=== PATIENT | male | born 1975 | race Caucasian/White ===

== ENCOUNTER 2019-01-04 18:51 | Emergency (ER) | payer OTHER ==
[~2019-01-04] VITALS: Ht 185.4 cm; Wt 117.9 kg
[2019-01-04 19:31] VITALS: BP 128/76
--- NOTE | 2019-01-04 20:41 | NUR ---
Patient discharged to home in stable condition. Written and verbal after care instructions given. Patient verbalizes understanding of instruction. Pt ambulatory with a steady gait
== END 2019-01-04 20:45 | disposition home or self-care (01) ==
LOC: ER 18:51
DX: N48.1 Balanitis (principal); L73.9 Follicular disorder, unspecified; E11.9 Type 2 diabetes mellitus without complications; F32.9 Major depressive disorder, single episode, unspecified; Z72.52 High risk homosexual behavior
CPT/HCPCS: 82962-TC